=== PATIENT | male | born 1975 | race Caucasian/White ===

== ENCOUNTER → 2017-08-14 | Outpatient (CLI) | payer OTHER ==
--- NOTE | 2017-08-15 10:01 | KCIC ---
MR of the left calf HISTORY: Left calf pain. Possible tear. Pain for a few weeks after running a race. Recent long plane flight. TECHNIQUE: Routine multiplanar sequences are obtained. FINDINGS: Mild fluid signal in the proximal medial calf, clinically surrounding the proximal medial gastrocnemius muscle. No evidence of intrinsic muscle tear. No organized hematoma. No bone lesion or acute fracture. No periosteal reaction. IMPRESSION: Mild fluid around the proximal medial gastrocnemius muscle could be due to a mild soft tissue injury with hemorrhage. No evidence of intrinsic muscle defect or tear. If there is clinical concern for deep venous thrombosis, recommend Doppler ultrasound. Electronically signed by: Nicolas Cortes MD (08/15/2017 9:58 AM) [facility]
== END | disposition home or self-care (01) ==
LOC: KCIC MRI 16:29
DX: I82.4Z2 Acute embolism and thrombosis of unspecified deep veins of left distal lower extremity (principal)
CPT/HCPCS: 73718